=== PATIENT | female | born 1985 | race Caucasian/White ===

== ENCOUNTER 2019-06-12 22:49 | Emergency (ER) | payer MEDICAID ==
[~2019-06-12] VITALS: Ht 152.4 cm; Wt 88.5 kg
[2019-06-12 23:40] VITALS: BP 115/65
--- NOTE | 2019-06-12 23:43 | NUR ---
TO LOBBY A/W BED AMBULATORY
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
[2019-06-13] MEDS ORDERED: IBUPROFEN 600 MG TAB PO ONE (01:25)
[2019-06-13] MEDS ORDERED: CEPHALEXIN 500 MG CAP PO ONE (01:25)
[2019-06-13 02:01] VITALS: BP 115/65
--- NOTE | 2019-06-13 02:01 | NUR ---
Patient discharged with v/s stable. Written and verbal after care instructions given and explained. Patient alert, oriented and verbalized understanding of instructions. Ambulatory with steady gait. All questions addressed prior to discharge. ID band removed. Patient advised to follow up with PMD. Rx of KEFLEX, IBUPROFEN given. Patient educated on indication of medication including possible reaction and side effects. Opportunity to ask questions provided and answered.
== END 2019-06-13 02:01 | disposition home or self-care (01) ==
LOC: MED 22:49
DX: S61.012A Laceration without foreign body of left thumb without damage to nail, initial encounter (principal); W26.0XXA Contact with knife, initial encounter; Y93.89 Activity, other specified; Y92.89 Other specified places as the place of occurrence of the external cause; Y99.8 Other external cause status
CPT/HCPCS: 12001; 90471; 90715; 99283

== ENCOUNTER 2021-04-09 22:39 | Emergency (ER) | payer MEDICAID ==
[~2021-04-09] VITALS: Ht 157.5 cm; Wt 92.1 kg
[2021-04-09 22:52] VITALS: BP 147/69
--- NOTE | 2021-04-09 22:58 | NUR ---
PATIENT TO THE BATHROOM FOR URINE COLLECTION AND WILL GO TO LOBBY
--- NOTE | 2021-04-09 23:37 | NUR ---
PT AMBULATED TO BED 09
[2021-04-10] MEDS ORDERED: CEPH-588 PO (00:05)
[2021-04-10] MEDS ORDERED: ACETAMINOPHEN EXTRA STRENGTH 500 MG TAB PO ONE (00:05)
[2021-04-10] MEDS ORDERED: cefTRIAXone 1,000 MG VIAL ONE (00:54)
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
[2021-04-10 02:07] VITALS: BP 113/66
== END 2021-04-10 02:07 | disposition home or self-care (01) ==
LOC: MED 22:39
DX: R30.0 Dysuria (principal); R31.9 Hematuria, unspecified; Z79.899 Other long term (current) drug therapy
CPT/HCPCS: 81002; 81025; 96365; 99284; J0696